=== PATIENT | male | born 2000 | race Caucasian/White ===

== ENCOUNTER → 2019-01-25 | Outpatient (CLI) | payer BC ==
--- NOTE | 2019-01-25 15:22 | RAD ---
Testicular ultrasound HISTORY: Left testicle pain. FINDINGS: Right testicle measures 4.7 x 2.9 x 2.4 cm with intact blood supply and homogeneous echotexture/vascularity. Right epididymis appears unremarkable. No significant hydrocele. Left testicle measures 4.3 x 2.8 x 2.1 cm with intact blood supply and homogeneous echotexture/vascularity. Left epididymis demonstrates a very small 3 mm spermatocele/epididymal head cyst, but otherwise unremarkable.. No large hydrocele. IMPRESSION: 1. Small 3 mm left epididymal head cyst or spermatocele. 2. No significant or acute abnormality is identified. Electronically signed by: Miguel Ge MD (01/25/2019 3:19 PM) [id number]
== END | disposition home or self-care (01) ==
LOC: US 14:44
PROVIDERS: ATTEND Nurse Practitioner Family
DX: N50.3 Cyst of epididymis (principal)
CPT/HCPCS: 76870